=== PATIENT | male | born 1950 | race Caucasian/White ===

== ENCOUNTER 2018-09-24 11:05 | Inpatient (IN) | payer MEDICARE, MEDICAID ==
[~2018-09-24] VITALS: Ht 172.7 cm; Wt 79.8 kg
--- NOTE | 2018-09-24 11:15 | NUR ---
Note undone in EDM - 09/24/18 at 1324 by HERNESTO HI BP X 2 DAYS W/ HEADACHE. DENIES DIZZINESS, NUMBNESS/TINGLING AT THIS TIME. HAS WEAKNESS ON LEFT SIDE. -NEURO DEFICITS. LEFT ABOVE THE KNEE AMPUTATION. PT APPEARS SLIGHTLY ANXIOUS, AOX4, HYPERTENSIVE, RR EVEN AND UNLABORED ON RA. USES WHEELCHAIR AND WALKER FOR AMBULATION. HOOKED TO MONITOR AND READY FOR EVAL.
--- NOTE | 2018-09-24 11:15 | NUR ---
[id number], FROM HOME, C/O LEFT SIDED WEAKNESS AND NUMBNESS x 2 DAYS. -NEURO DEFICITS. LEFT ABOVE THE KNEE AMPUTATION. PT APPEARS SLIGHTLY ANXIOUS, AOX4, HYPERTENSIVE, RR EVEN AND UNLABORED ON RA. SKIN INTACT. USES WHEELCHAIR AND WALKER FOR AMBULATION. HOOKED TO MONITOR AND READY FOR EVAL.
[2018-09-24] MEDS ORDERED: HYDR25TA4 PO (11:21)
[2018-09-24] MEDS ORDERED: ASPI-605 PO (11:21)
[2018-09-24] MEDS ORDERED: AMLO10TA4 PO (11:21)
[2018-09-24] MEDS ORDERED: ROSU40TA22 PO (11:21)
--- NOTE | 2018-09-24 11:54 | NUR ---
PT TAKEN TO CT VIA [facility]
--- NOTE | 2018-09-24 11:56 | NUR ---
PER DBA MANAGER, BLOOD HEMOLYZED AND MUST BE REDRAWN
--- NOTE | 2018-09-24 12:02 | NUR ---
PT BACK FROM CT. KATI WELL. HOOKED TO MONITOR. PRODUCE MANAGER AT BEDSIDE FOR REDRAW
--- NOTE | 2018-09-24 12:15 | NUR ---
321-2 DX CVA MERLE CHANEY
[2018-09-24 12:21] LABS: BASOPHILS # (AUTO) 0.1 /CMM (0.0-0.2); BASOPHILS % (AUTO) 0.8 % (0.0-2.0); EOSINOPHILS % (AUTO) 0.8 % (0.0-6.0); HEMATOCRIT 51 % (39-51); HEMOGLOBIN 17.5 g/dL (13.5-17.5); LYMPHOCYTES # (AUTO) 2.2 /CMM (0.8-4.8); MEAN CORPUSCULAR HGB CONC 35 g/dl (31.0-36.0); MEAN CORPUSCULAR VOLUME 89 fL (80-96); MONOCYTES # (AUTO) 0.8 /CMM (0.1-1.30); MONOCYTES % (AUTO) 8.3 % (2.0-12.0); NEUTROPHILS # (AUTO) 6.7 /CMM (1.8-8.9); NEUTROPHILS % (AUTO) 68.1 % (43.0-81.0); PLATELET COUNT (AUTO) 410 /CMM (150-450); RED BLOOD CELL COUNT(AUTO) 5.69 MIL/uL (4.5-6.0); WHITE BLOOD COUNT (AUTO) 9.9 K/uL (4.3-11.0)
[2018-09-24 12:30] LABS: CARBON DIOXIDE 21 mmol/L (21-32); CHLORIDE 105 mmol/L (98-107); GLUCOSE 107 mg/dL (74-106); POTASSIUM 4.1 mmol/L (3.5-5.1); SODIUM SERUM 139 mmol/L (136-145); UREA NITROGEN, BLOOD 12 mg/dL (7-18)
[2018-09-24 12:41] LABS: ALANINE AMINOTRANSFERASE 36 U/L (12-78); ALBUMIN 3.6 g/dL (3.4-5.0); ALKALINE PHOSPHATASE 88 U/L (46-116); ASPARTATE AMINOTRANSFERASE 24 U/L (15-37); BILIRUBIN,DIRECT 0.1 mg/dL (0.0-0.2); BILIRUBIN,TOTAL 0.5 mg/dL (0.2-1.0); TOTAL PROTEIN, SERUM 7.5 g/dL (6.4-8.2)
[2018-09-24] MEDS ORDERED: ASPIRIN 81 MG TAB.CHEW ONE (12:49)
[2018-09-24] MEDS ORDERED: ASPIRIN 81 MG TAB.CHEW PO ONE (13:00)
--- NOTE | 2018-09-24 13:06 | NUR ---
REPORT GIVEN TO JONNATHAN MUSTAFA FOR 321-2 TELE
--- NOTE | 2018-09-24 13:41 | NUR ---
PT TRANSFERRED TO FLOOR VIA [facility]
[2018-09-24 13:50] VITALS: BP 132/87
[2018-09-24 14:00] VITALS: BP 132/87
[2018-09-24] MEDS ORDERED: hydrALAZINE HCL IV 20 MG VIAL IV PRN (15:30)
--- NOTE | 2018-09-24 15:41 | NUR ---
COUNTER INTELLIGENCE TECHNICIAN ADMITTING NOTES ADMITTED A 67 Y/O MALE TO UNIT VIA GURNEY AT 1345. PT ORIENTED TO UNIT AND STAFF. A/O X4. ABLE TO MAKE NEEDS KNOWN WITH C/O MILD WEAKNESS ON HIS LEFT SIDE OF BODY. STROKE SCALE ASSESSMENT DONE. PT NOTED WITH CLEAR SPEECH, NO FACIAL DROPPING, NO DRIFT ON RIGHT UPPER AND LOWER EXTREMITIES. NO DRIFT BUT PT VERBALIZED THAT HE HAS MILD WEAKNESS ON LEFT ARM AND PT IS AKA ON LEFT LEG. PT ON ROOM AIR, BREATHING EVEN AND UNLABORED. NO ACUTE RESPIRATORY DISTRESS NOTED. BODY ASSESSMENT DONE. PHOTOS OF SKIN ISSUES TAKEN AND FILED ON CHART. LUNGS CLEAR ON AUSCULTATION. ABDOMEN SOFT AND NON-TENDER. PT PLACED ON TELE-MONITORING AND SHOWS SR WITH HR ON THE 80'S. IV ACCESS ON RIGHT HAND G #20 INTACT AND PATENT. SAFETY MEASURES INITIATED. BED PLACED ON LOW LOCKED POSITION WITH SR UP X2. CALL LIGHT IN REACH. METAL MOLD DRESSER SHIV INFORMED OF PT'S ADMISSION TO UNIT. WILL CONTINUE TO ASSESS AND MONITOR PT.
--- NOTE | 2018-09-24 15:56 | NUR ---
RN NOTES PATIENT EVALUATED IF ABLE TO SWALLOW LIQUID WITHOUT CHOCKING, COUGHING OR ASPIRATION. NO PROBLEM SWALLOWING NOTED. GAS WELL DRILLING MANAGER SHIV ON UNIT AND MADE AWARE WITH ORDER TO PUT PT ON NPO EXCEPT MEDS. WILL CARRY OUT ORDER.
[2018-09-24 16:00] VITALS: BP 155/100
--- NOTE | 2018-09-24 16:09 | NUR ---
RN NOTES EKG DONE. SILVA CHANEY ON UNIT AND SHOWED THE RESULTS.
[2018-09-24] MEDS: MORPHINE SULFATE INJ 2 MG/ML DISP.SYRIN IV PRN ×2 (16:19→20:57)
--- NOTE | 2018-09-24 16:23 | NUR ---
RN NOTES PATIENT C/O ACHING, NUMBING, THROBBING AND BURNING PAIN ON LEFT SIDE OF HIS BODY WITH SCALE OF 8/10. BP CHECKED AND WAS 155/100MMHG. HANDLE TURNER SHIV ON UNIT AND M,VIVIAN AWARE WITH ORDER TO GIVE MORPHINE SULFATE 2 MG/1ML IVP. MORPHINE ADMINISTERED AT 1619 IVP. WILL CONTINUE TO MONITOR AND REASSESS PT.
[2018-09-24 17:10] LABS: APPEARANCE,URINE CLEAR (CLEAR); BILIRUBIN,URINE NEGATIVE (NEGATIVE); BLOOD, URINE NEGATIVE Ery/uL (NEGATIVE); COLOR,URINE YELLOW (YELLOW); KETONES,URINE NEGATIVE (NEGATIVE); LEUKOCYTE ESTERASE ,URINE NEGATIVE (NEGATIVE); NITRITE, URINE NEGATIVE (NEGATIVE); PH,URINE 7.5 (5.0-8.0); PROTEIN,URINE NEGATIVE (NEGATIVE); UGLUCOSE NEGATIVE (NEGATIVE); UROBILINOGEN,URINE 0.2 EU/dL (0.2)
[2018-09-24] MEDS ORDERED: BLOOD SUGAR DIAGNOSTIC 1 EACH STRIP IN SCH (17:30)
--- NOTE | 2018-09-24 17:51 | NUR ---
RN NOTES URINE SPECIMEN COLLECTED AND PICKED UP BY ROLL OR TAPE EDGE MACHINE OPERATOR. WILL F/U RESULTS
[2018-09-24] MEDS: BLOOD SUGAR DIAGNOSTIC 1 EACH STRIP IN SCH (18:07)
--- NOTE | 2018-09-24 18:37 | NUR ---
ABSORPTION PLANT OPERATOR CLOSING NOTES PATIENT ASLEEP IN BED AT THIS TIME, EASILY AWAKENS. HOB ELEVATED. PT IS A/O X4, SAME ABLE TO MAKE NEEDS AND CONCERNS KNOWN. ON 02 VIA N/C AT 2LPM AT THIS TIME, TOLERATING WELL WITH NO SOB NOTED. ON TELE-MONITORING WITH CURRENT READING OF SR WITH HR OF 77, NO CARDIAC DISTRESS NOTED. IV ACCESS ON RIGHT HAND INTACT AND PATENT, FLUSHED WITH NS AND OPERATIONAL. KEPT BED IN LOW LOCKED POSITION WITH SR UP X2. ALL NEEDS AND CARE ATTENDED WELL. WILL ENDORSE TO BATTERY TESTER FIELD NURSE FOR NATALI.
--- NOTE | 2018-09-24 19:55 | NUR ---
QUEEN PRODUCER NOTES RECEIVED PATIENT ASLEEP IN BED AT THIS TIME, EASILY AWAKENS. HOB ELEVATED. PT IS A/O X4, SAME ABLE TO MAKE NEEDS AND CONCERNS KNOWN. ON 02 VIA N/C AT 2LPM AT THIS TIME, TOLERATING WELL WITH NO SOB NOTED. ON TELE-MONITORING WITH CURRENT READING OF SR WITH HR OF 77, NO CARDIAC DISTRESS NOTED. IV ACCESS ON RIGHT HAND INTACT AND PATENT, FLUSHED WITH NS AND WORKING PROPERLY, SAFETY MEASURES, SAFETY MEASURES IN PLACE, KEPT BED IN LOW LOCKED POSITION WITH SR UP X2. ALL NEEDS AND CARE ATTENDED WELL. WILL CONTINUE TO MONITOR ACCORDINGLY.
[2018-09-24 20:22] VITALS: BP 138/115
[2018-09-24] MEDS ORDERED: SIMVASTATIN 20 MG TABLET PO SCH (22:00)
[2018-09-25] VITALS (7 sets, daily range): BP systolic 116–127; BP diastolic 76–92
[2018-09-25] MEDS: BLOOD SUGAR DIAGNOSTIC 1 EACH STRIP IN SCH ×4 (06:11→17:49)
--- NOTE | 2018-09-25 07:09 | NUR ---
ROLLS BAKER NOTES PATIENT ASLEEP IN BED AT THIS TIME, EASILY AWAKENS. HOB ELEVATED. PT IS A/O X4, SAME ABLE TO MAKE NEEDS AND CONCERNS KNOWN. ON 02 VIA N/C AT 2LPM AT THIS TIME, TOLERATING WELL WITH NO SOB NOTED. ON TELE-MONITORING WITH CURRENT READING OF SR WITH HR OF 77, NO CARDIAC DISTRESS NOTED. IV ACCESS ON RIGHT HAND INTACT AND PATENT, FLUSHED WITH NS AND WORKING PROPERLY, SAFETY MEASURES, SAFETY MEASURES IN PLACE, KEPT BED IN LOW LOCKED POSITION WITH SR UP X2. ALL NEEDS AND CARE ATTENDED WELL. WILL ENDORSE TO TO AM NURSE FOR CONTINUITY OF CARE.
--- NOTE | 2018-09-25 07:10 | NUR ---
LUMBER PILER NOTES PATIENT IN BED ALERT ORIENTED X 4. NO ACUTE DISTRESS NOTED, BREATHING UNLABORED, NO SOB NOTED. IV ACCESS PATENT AND INTACT, NO REDNESS NO SWELLING NOTED. SAFETY MEASURES IN PLACE. CALL LIGHT WITHIN REACH. WILL CONTINUE TO MONITOR ACCORDINGLY.
[2018-09-25 07:18] LABS: BASOPHILS % (AUTO) 0.6 % (0.0-2.0); EOSINOPHILS % (AUTO) 1.6 % (0.0-6.0); HEMATOCRIT 49 % (39-51); HEMOGLOBIN 16.5 g/dL (13.5-17.5); LYMPHOCYTES # (AUTO) 2.3 /CMM (0.8-4.8); LYMPHOCYTES % (AUTO) 29.3 % (20.0-44.0); MEAN CORPUSCULAR HGB CONC 34 g/dl (31.0-36.0); MEAN CORPUSCULAR VOLUME 89 fL (80-96); MONOCYTES # (AUTO) 0.7 /CMM (0.1-1.30); NEUTROPHILS # (AUTO) 4.7 /CMM (1.8-8.9); NEUTROPHILS % (AUTO) 59.5 % (43.0-81.0); PLATELET COUNT (AUTO) 384 /CMM (150-450)
[2018-09-25 07:40] LABS: CALCIUM, SERUM 8.6 mg/dL (8.5-10.1); POTASSIUM 3.9 mmol/L (3.5-5.1)
[2018-09-25] MEDS: PANTOPRAZOLE 40 MG TABLET.DR PO SCH (08:00)
[2018-09-25] MEDS: HYDROCHLOROTHIAZIDE 25 MG TABLET PO SCH (08:02)
[2018-09-25] MEDS: DOCUSATE SODIUM 100 MG CAPSULE PO SCH (08:02)
[2018-09-25] MEDS: AMLODIPINE BESYLATE 10 MG TABLET PO SCH (08:03)
[2018-09-25] MEDS ORDERED: ASPIRIN EC 81 MG TABLET.DR PO SCH (09:00)
[2018-09-25] MEDS: MORPHINE SULFATE INJ 2 MG/ML DISP.SYRIN IV PRN ×3 (09:05→21:16)
[2018-09-25] MEDS: CLOPIDOGREL BISULFATE 75 MG TABLET PO SCH (09:05)
--- NOTE | 2018-09-25 13:13 | NUR ---
Social service consult requested by SILVA Hudson for stroke. Pt. is a 67 year old male who was admitted to [facility] for stroke. Pt. is alert and oriented x 3. Pt. resides with roommates. Pt's emergency contact is his brother Jacob Wang, . Pt. usually uses a wheelchair and has a walker at home too. Pt stated he uses his wheelchair due to discomfort using LLE prosthetic. Pt. has a shower chair at home. Pt. smokes 1/2 pack of cigarettes per day. Pt's toxicology showed positive for opiates. Pt. was encouraged to stop smoking. Pt. was seen by Neurologist Dr. Castro. Per Dr. Canales pt. will require rehabilitation for PT and OT.
--- NOTE | 2018-09-25 18:57 | NUR ---
MS RN NOTES PATIENT IN BED ALERT ORIENTED X 4. NO ACUTE DISTRESS NOTED, BREATHING UNLABORED, NO SOB NOTED. IV ACCESS PATENT AND INTACT, NO REDNESS NO SWELLING NOTED. DUE MEDICATIONS GIVEN, NO ASE NOTED. NEEDS ATTENDED AND ANTICIPATED. SAFETY MEASURES IN PLACE. CALL LIGHT WITHIN REACH. WILL ENDORSE TO NIGHT NURSE FOR CONTINUITY OF CARE.
--- NOTE | 2018-09-25 19:45 | NUR ---
RN MS OPENING NOTES RECEIVED PATIENT IN BED AWAKE, ALERT AND ORIENTED X4, VERBALLY RESPONSIVE, ABLE TO MAKE NEEDS KNOWN. BREATHING EVEN AND UNLABORED. NO SOB NOTED. TOLERATING ROOM AIR. IV ON LEFT FOREARM INTACT AND PATENT. CURRENTLY WITH NO COMPLAINTS OF PAIN OR DISCOMFORT. NO FACIAL GRIMACING. SKIN DRY AND WARM TO TOUCH. AFEBRILE. ALL OTHER NEEDS MET. SAFETY MEASURES IN PLACE. CALL LIGHT WITHIN REACH. WILL CONTINUE TO MONITOR.
--- NOTE | 2018-09-25 20:30 | NUR ---
RN MS NOTES PATIENT ACCIDENTLY PULLED OUT IV ON RIGHT HAND. NEW IV ACCESS STARTED ON THE LEFT FOREARM G#20. GOOD BLOOD RETURN. WILL CONTINUE TO MONITOR.
[2018-09-25] MEDS: SIMVASTATIN 40 MG TABLET PO SCH (21:15)
[2018-09-26] MEDS: BLOOD SUGAR DIAGNOSTIC 1 EACH STRIP IN SCH ×5 (00:48→23:04)
[2018-09-26] MEDS: MORPHINE SULFATE INJ 2 MG/ML DISP.SYRIN IV PRN ×4 (03:42→22:48)
--- NOTE | 2018-09-26 06:31 | NUR ---
RN MS CLOSING NOTES PATIENT RESTING IN BED. NO ACUTE CHANGES THROUGHOUT SHIFT. BREATHING EVEN AND UNLABORED. NO SOB NOTED. TOLERATING ROOM AIR. IV ON LEFT FOREARM INTACT AND PATENT. CURRENTLY WITH NO COMPLAINTS OF PAIN OR DISCOMFORT. NO FACIAL GRIMACING. KEPT CLEAN AND COMFORTABLE. ALL OTHER NEEDS MET. SAFETY MEASURES IN PLACE. CALL LIGHT WITHIN REACH. WILL ENDORSE TO ONCOMING NURSE FOR NATALI.
[2018-09-26 07:07] LABS: BASOPHILS % (AUTO) 0.6 % (0.0-2.0); EOSINOPHILS % (AUTO) 2.7 % (0.0-6.0); HEMATOCRIT 48 % (39-51); HEMOGLOBIN 16.5 g/dL (13.5-17.5); LYMPHOCYTES # (AUTO) 1.7 /CMM (0.8-4.8); LYMPHOCYTES % (AUTO) 26.3 % (20.0-44.0); MEAN CORPUSCULAR HGB CONC 34 g/dl (31.0-36.0); MEAN CORPUSCULAR VOLUME 88 fL (80-96); MONOCYTES # (AUTO) 0.7 /CMM (0.1-1.30); MONOCYTES % (AUTO) 10.3 % (2.0-12.0); NEUTROPHILS % (AUTO) 60.1 % (43.0-81.0); PLATELET COUNT (AUTO) 374 /CMM (150-450); RED BLOOD CELL COUNT(AUTO) 5.46 MIL/uL (4.5-6.0); WHITE BLOOD COUNT (AUTO) 6.6 K/uL (4.3-11.0)
--- NOTE | 2018-09-26 07:10 | NUR ---
MS RN NOTES PATIENT IN BED ALERT ORIENTED X 4. NO ACUTE DISTRESS NOTED, BREATHING UNLABORED, NO SOB NOTED. IV ACCESS PATENT AND INTACT, NO REDNESS NO SWELLING NOTED. SAFETY MEASURES IN PLACE. CALL LIGHT WITHIN REACH. WILL CONTINUE TO MONITOR ACCORDINGLY.
[2018-09-26 07:12] LABS: CREATININE 1.1 mg/dL (0.6-1.3); MAGNESIUM 2.3 mg/dL (1.8-2.4); PHOSPHORUS 4.2 mg/dL (2.5-4.9); POTASSIUM 3.6 mmol/L (3.5-5.1)
[2018-09-26] MEDS: PANTOPRAZOLE 40 MG TABLET.DR PO SCH (08:11)
[2018-09-26] MEDS: CLOPIDOGREL BISULFATE 75 MG TABLET PO SCH (08:37)
[2018-09-26] MEDS: DOCUSATE SODIUM 100 MG CAPSULE PO SCH (08:37)
[2018-09-26] MEDS: AMLODIPINE BESYLATE 10 MG TABLET PO SCH (08:38)
[2018-09-26] MEDS: HYDROCHLOROTHIAZIDE 25 MG TABLET PO SCH (08:38)
[2018-09-26 08:41] VITALS: BP 135/88
[2018-09-26 16:05] VITALS: BP 132/76
[2018-09-26] MEDS: GABAPENTIN 300 MG CAPSULE PO SCH (17:40)
--- NOTE | 2018-09-26 18:57 | NUR ---
MS RN NOTES PATIENT IN BED ALERT ORIENTED X 4. NO ACUTE DISTRESS NOTED, BREATHING UNLABORED, NO SOB NOTED. IV ACCESS PATENT AND INTACT, NO REDNESS NO SWELLING NOTED. DUE MEDICATION GIVEN GIVEN, NO ASE NOTED. NEEDS ATTENDED AND ANTICIPATED. SAFETY MEASURES IN PLACE. CALL LIGHT WITHIN REACH. WILL ENDORSE TO NIGHT NURSE FOR CONTINUITY OF CARE.
--- NOTE | 2018-09-26 19:10 | NUR ---
MS RN PM OPENING NOTES REPORT RECIEVED FROM RAINA DE SANTIAGO BEDSIDE. PATIENT IN BED ALERT ORIENTED X 4. NO ACUTE DISTRESS NOTED, BREATHING UNLABORED, NO SOB NOTED. IV ACCESS PATENT AND INTACT, NO REDNESS NO SWELLING NOTED. POC REVIEWED QUESTIONS CONCERNS ADDRESSED. SAFETY MEASURES IN PLACE. CALL LIGHT WITHIN REACH. BED DOWN LOCKED. PATIENT VERBALIZED UNDERSTANDING TO CALL FOR ASSISTANCE IF GETTING OOB.
[2018-09-26 20:00] VITALS: BP 118/91
[2018-09-26] MEDS: SIMVASTATIN 40 MG TABLET PO SCH (21:21)
[2018-09-27] MEDS: MORPHINE SULFATE INJ 2 MG/ML DISP.SYRIN IV PRN ×3 (03:21→14:03)
[2018-09-27] MEDS: BLOOD SUGAR DIAGNOSTIC 1 EACH STRIP IN SCH ×2 (07:29→11:52)
--- NOTE | 2018-09-27 07:30 | NUR ---
m/s specimen accessioner: initial assessment received pt in bed awake, a/ox4. no c/o pain at this time. hx: left aka. pt has his own wheelchair. instructed to call for assistance. will continue to monitor.
[2018-09-27 08:00] VITALS: BP 146/71
[2018-09-27 08:10] VITALS: BP 146/71
[2018-09-27] MEDS: PANTOPRAZOLE 40 MG TABLET.DR PO SCH (08:33)
[2018-09-27] MEDS: AMLODIPINE BESYLATE 10 MG TABLET PO SCH (08:33)
[2018-09-27 08:34] VITALS: BP 146/71
[2018-09-27] MEDS: DOCUSATE SODIUM 100 MG CAPSULE PO SCH (08:34)
[2018-09-27] MEDS: GABAPENTIN 300 MG CAPSULE PO SCH ×3 (08:34→16:11)
[2018-09-27] MEDS: CLOPIDOGREL BISULFATE 75 MG TABLET PO SCH (08:34)
[2018-09-27] MEDS: HYDROCHLOROTHIAZIDE 25 MG TABLET PO SCH (08:34)
--- NOTE | 2018-09-27 09:36 | NUR ---
m/s rigging supervisor: notes c/o 01/14 left face and lle phantom pain, medicated with morphine 2mg ivp by rn. instructed to call for assistance.
--- NOTE | 2018-09-27 10:06 | NUR ---
m/s boiler service technician: notes pt verbalize relief of pain. instructed to call for assistance. will monitor. neuro check wnl. pupils perrla at 3mm. pt has left aka. will continue to monitor.
--- NOTE | 2018-09-27 11:25 | NUR ---
m/s deck steward: notes bello (case management) at bedside re: d'c planning today to snf, but pt refused and wants to go home with home health. bello will arrange home health and will let guillremo ([facility]) know. instructed to call for assistance.
--- NOTE | 2018-09-27 14:03 | NUR ---
m/s absorption plant operator: notes c/o 01/14 left face and lle phantom pain, medicated with morphine 2mg ivp by rn. instructed to call for assistance.
[2018-09-27] MEDS ORDERED: CLOP75TA15 PO (14:41)
[2018-09-27] MEDS ORDERED: GABA300C PO (14:41)
[2018-09-27] MEDS ORDERED: HYDR-4384 PO (14:45)
--- NOTE | 2018-09-27 15:30 | NUR ---
m/s account solutions analyst: notes discharge instructions with prescriptions given to pt and verbalized understanding. medications teachings including side effects instructions given, verbalized understanding. pt will f/u with painter rough, neurology, and primary care physician in one to two weeks as instructed. home health contacted pt as stated and will f/u with them. awaiting for ambulance to pick him up.
--- NOTE | 2018-09-27 16:00 | NUR ---
m/s market risk analyst: notes pt c/o numbness and tight feeling to his left shoulder. b/p 121/77, hr 87. denies sob or chest pain at this time. pt still wants to go home. guillermo ([facility]) here and made aware of pt condition with order to give flexeril 10mg po once before discharge and he needs to f/u with his painter set as stated. pt made aware and verbalized understanding.
--- NOTE | 2018-09-27 16:15 | NUR ---
m/s club director: notes h/l removed with tip intact with no bleeding, no redness, and no swelling noted. awaiting for ambulance to cook pickled meat. instructed to call for assistance.
[2018-09-27] MEDS ORDERED: CYCLOBENZAPRINE 10 MG TABLET PO ONE (16:30)
--- NOTE | 2018-09-27 16:30 | NUR ---
m/s information developer: notes pt feeling much better and verbalized relief. still awaiting for ambulance to pick him up. f/u made to kathryn ([facility]) and informed me that they should be there in a few minutes. pt made aware.
--- NOTE | 2018-09-27 17:00 | NUR ---
m/s barber instructor: notes ambulance here and report given to one of the crew.
--- NOTE | 2018-09-27 17:10 | NUR ---
m/s visual coordinator: discharged discharged home in stable condition with all d'c papers and valuables via [facility].
== END 2018-09-27 17:10 | disposition home health service (06) | DRG 66 ==
LOC: ER 11:07 → MED 12:44 → TELE 17:41 → MED 09-25 09:09
PROVIDERS: ADMIT Hospitalist; ATTEND Hospitalist
DX: I63.9 Cerebral infarction, unspecified (principal); E78.5 Hyperlipidemia, unspecified; I10 Essential (primary) hypertension; I73.9 Peripheral vascular disease, unspecified; Z89.612 Acquired absence of left leg above knee; F17.210 Nicotine dependence, cigarettes, uncomplicated; R29.700 NIHSS score 0
CPT/HCPCS: 36415; 70450-TC; 71045-TC; 80048-TC; 80061-TC; 80076-TC; 80305; 81000-TC; 82962-TC; 83735-TC; 83880; 84100-TC; 84484-TC; 85025-TC; 85652-TC; 85730-TC; 87081-TC; 87086-TC; 92526; 92611-TC; 97530-TC; G0378; J2270

== ENCOUNTER 2018-10-02 20:02 | Emergency (ER) | payer MEDICARE, MEDICAID ==
[~2018-10-02] VITALS: Ht 172.7 cm; Wt 81.6 kg
[~2018-10-02 20:02] MED LIST: AMLO10TA4 PO; CLOP75TA15 PO; GABA300C PO; HYDR-4384 PO; HYDR25TA4 PO; ROSU40TA22 PO
[2018-10-02 20:08] VITALS: BP 148/86
[2018-10-02] MEDS ORDERED: HYDROCODONE/APAP 5/325MG 1 EACH TABLET PO ONE (21:30)
--- NOTE | 2018-10-02 21:54 | NUR ---
PT LEAVING JUAN. AWARE. PT STABLE. VSS.
== END 2018-10-02 21:55 | disposition left against medical advice (07) ==
LOC: ER 20:05
DX: M25.512 Pain in left shoulder (principal); I10 Essential (primary) hypertension; E78.5 Hyperlipidemia, unspecified; I73.9 Peripheral vascular disease, unspecified; F17.210 Nicotine dependence, cigarettes, uncomplicated; Z86.73 Personal history of transient ischemic attack (TIA), and cerebral infarction without residual deficits; Z89.612 Acquired absence of left leg above knee; Z79.899 Other long term (current) drug therapy